=== PATIENT | male | born 1955 ===

== ENCOUNTER 2018-06-11 12:14 | Outpatient (CLI) | payer BC, SELFPAY ==
--- NOTE | 2018-06-11 06:00 | DI.RAD_ITS ---
SYMPTOMS/DIAGNOSIS: LUMBAR SPONDYLOSIS PAIN CLINIC LUMBAR SPINE: Fluoroscopy Time: 60 sec C-arm fluoroscopy is utilized by Dr. Ortiz. Hard copies show injection adjacent to the pedicles of what appear to be L4, L5 and S1 bilaterally.
[2018-06-11 12:36] VITALS: BP 148/99; PULSE 78; RESP 22; TEMP 36.9; O2SAT 97
[2018-06-11 13:30] VITALS: BP 176/98; PULSE 85; RESP 16; O2SAT 99
--- NOTE | 2018-06-11 13:32 | PDOC.PAIN ---
Pain Clinic Procedure Note Current Active Problems Problem Status Onset Lumbosacral spondylosis without myelopathy Acute Lumbar/Sacral Medial Branch Blocks SONIA ANAND has been referred to the [facility] for lumbar/sacral medial branch blocks. COMMENTS: He did great with his first LMBB Patient was interviewed and the medical record reviewed. There were no medical, pharmacologic, radiographic or other structural contraindications to attempting fluoroscopically guided local anesthetic lumbar/sacral medial branch blocks. Risks and expected side effects as well as potential benefit of the procedure were reviewed and voiced concerns addressed. The printed consent form was signed and witnessed. Standard time-out procedure was performed. Patient was placed in the prone position on the fluoroscopy table and automated blood pressure cuff and pulse oximeter applied. The skin entry points for approaching the anatomic target points of the segmental medial branches of bilateral L3-L5DR were identified with anfluoroscopy and marked. Following thorough Chlorhexadine preparation of the skin and draping and 1% lidocaine infiltration of the skin entry points and subcutaneous tissues, a 22 gauge spinal needle was placed under fluoroscopic guidance down on to the target point for each respective segmental medial branch.Position was confirmed in A/P, oblique and lateral views with 0.25ml of omnipaque 240. At this point I injected 0.5 cc of 2% Lidocaine at each segmental nerve . Vital signs were stable throughout the procedure and were as recorded in the docflowsheet by the nursing staff. Follow up plans and appointments were discussed and was instructed to keep careful note of how the usual pain was modified by these injections. Specifically was asked to keep a pain diary for the next 24 hours using a numeric pain scale of 0-10 and report these results at the follow-up visit. Post procedure instruction was given as documented in the nursing documentation and having met discharge criteria. Patient was discharged from the [facility]. Based on the medial branches blocked today, if the patient has adequate relief and we are able to proceed to radiofrequency ablation, the treatment should result in the denervation of the bilateral L4-L5 and L5-S1 FACET JOINTS. We would expect to denervate a total of 4 facets during the radiofrequency ablation. COMMENTS:He will call us back with the 1-4 post-procedure pain scores. CC: Jessee Moeller Jr
[2018-06-11] MEDS: Lidocaine 2% Pres-Free 5 ML VIAL IJ (13:42)
[2018-06-11] MEDS: Omnipaque 240 MG/ML 50 ML BTL IJ (13:45)
== END 2018-06-11 12:34 ==
PROVIDERS: PCP Family Medicine; Visit Provider Preventive Medicine Occupational Medicine
DX: M47.817 Spondylosis without myelopathy or radiculopathy, lumbosacral region (principal)
CPT/HCPCS: 64493 ×2; 64494 ×2; 72100; Q9967

== ENCOUNTER 2018-06-20 08:49 | Outpatient (CLI) | payer BC, SELFPAY ==
[2018-06-20 08:53] VITALS: BP 125/84; PULSE 69; RESP 18; TEMP 36.6; O2SAT 99
[2018-06-20] MEDS: fentaNYL 100 MCG/2 ML VIAL IVP ×2 (09:32→09:38)
[2018-06-20] MEDS: Midazolam 2 MG/2 ML VIAL IVP (09:32)
[2018-06-20] MEDS: Lactated Ringers 1,000 ML 80 ML IV (09:32)
[2018-06-20 10:14] VITALS: BP 136/87; PULSE 74; RESP 15; O2SAT 100
--- NOTE | 2018-06-20 10:19 | DI.RAD_ITS ---
SYMPTOM/DIAGNOSIS: LUMBAR SPONDYLOSIS, LUMBAR RADIOFREQUENCY ABLATION C-ARM: Fluoroscopy Time: 71.4 sec 19.71 mGy Images submitted from the pain clinic demonstrate positioning of needles over the lateral portion of the right and left L 4-5 level with also positioning of two needles over the region of the left proximal sacrum in conjunction with a radiofrequency lumbar ablation carried out by Dr. Ortiz. Please see the procedure report for further information.
[2018-06-20] MEDS: Lidocaine 2% Pres-Free 5 ML VIAL IJ (10:33)
[2018-06-20] MEDS: methylPREDNISolone ACETATE 40 MG/ML VIAL IJ (10:33)
[2018-06-20] MEDS: Bupivacaine 0.5% Pres-Free 10 ML VIAL IJ (10:34)
--- NOTE | 2018-06-20 10:35 | PDOC.PAIN ---
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 SONIA has had long standing back pain thought to be facet joint generated and which has been refractory to other therapies. Local anesthetic medial branch blocks or intra-articular facet joint injections resulted in SONIA reporting reduction of the usual axial component of pain for at least the duration of the local anesthetic effect. COMMENTS: He did great with the LMBBs X 2. Patient was interviewed and the medical record reviewed. There were no medical, pharmacologic, radiographic or other structural contraindications to attempting fluoroscopically guided radiofrequency treatment. Risks and expected side effects as well as potential benefit of the procedure were reviewed and voiced concerns addressed. The printed consent form was signed and witnessed. Standard time-out procedure was performed. Patient was placed in the prone position on the fluoroscopy table and automated blood pressure cuff and pulse oximeter applied. The skin entry points for approaching the anatomic target points of the segmental medial branches of bilateral L3-S1 were identified with fluoroscopy and marked. Following thorough Chlorhexadine preparation of the skin and draping and 1% lidocaine infiltration of the skin entry points and subcutaneous tissues, a single 18 guage curved 10 cm 10mm active tip radiofrequency cannula was placed under fluoroscopic guidance along or across the anatomic course of each respective segmental medial branch. Each placement was stimulated at 50Hz and les then 0.5V for medial branch sensory localization and the at 2Hz and up to 3 times the sensory voltage without any evidence of distal myotomal stimulation. 1cc of 1% ;idocaine was injected at each site. At each placement a continuous mode radiofrequency treatment was done at 80 degrees C for 90secs. This radiofrequency treatment should result in the denervation of the bilateral L4-L5 and L5-S1 FACET JOINTS.~ A total of 4 facets were expected to be denervated from today's treatment. Vital signs were stable throughout the procedure and were as recorded in the docflowsheet by the nursing staff. If given, dosages of intravenous drugs for anxiolysis and analgesia were documented in the Medication Administration Record (MAR). Follow up plans and appointments were discussed. Post procedure instruction was given as documented in the nursing documentation and having met discharge criteria, SONIA was discharged from the [facility]. COMMENTS: If this procedure gives him at least 6 months of relief, it can be repeated without repeating the LMBBs. CC: Jessee Moeller Jr
== END 2018-06-20 09:09 ==
PROVIDERS: PCP Family Medicine; Visit Provider Preventive Medicine Occupational Medicine
DX: M47.817 Spondylosis without myelopathy or radiculopathy, lumbosacral region (principal); G89.29 Other chronic pain
CPT/HCPCS: 64635 ×2; 64636 ×2; 72100; J1030; J2250; J3010